=== PATIENT | male | born 1960 | race American Indian/Alaskan Native ===

== ENCOUNTER 2017-09-11 15:15 | Emergency (ER) | payer OTHER ==
[2017-09-11 15:23] VITALS: RESP 18; O2SAT 98
[2017-09-11] MEDS ORDERED: Naproxen 550 mg Tab PO STA (17:32)
[2017-09-11] MEDS ORDERED: Naproxen 550 mg Tab PO ONE (17:37)
--- NOTE | 2017-09-11 17:48 | C.PDOC ---
History Of Present Illness 56 year old male with Hx of HTN and diabetes presents to the ED c/o right sided lower back pain for over a year that is worse while seating down and also while at work, he works lifting heavy ladders. Patient states not taking his medications for HTN or diabetes for 11 months due to the fact that he lost his job and his medical insurance, he was taking metformin and lisinopril. He denies nay recent fall, trauma, abdominal pain, fever, dysuria, hematuria, or sensory changes in his legs. Time Seen by Provider: 09/11/17 16:56 Chief Complaint (Nursing): Dizziness/Lightheaded History Per: Patient History/Exam Limitations: no limitations Onset/Duration Of Symptoms: Days Current Symptoms Are (Timing): Still Present Seizure Or Post-ictal Symptoms: None Fall Associated With With Symptoms: No Recent travel outside of the [place]: No Additional History Per: Patient Past Medical History Reviewed: Historical Data, Nursing Documentation, Vital Signs Vital Signs: Last Vital Signs Temp 97.4 F L 09/11/17 15:20 Pulse 70 09/11/17 15:20 Resp 18 09/11/17 15:20 BP 133/84 09/11/17 15:20 Pulse Ox 98 09/11/17 18:04 - Medical History PMH: HTN Surgical History: No Surg Hx Family History: States: Unknown Family Hx - Social History Hx Alcohol Use: No Hx Substance Use: No Review Of Systems Except As Marked, All Systems Reviewed And Found Negative. Musculoskeletal: Positive for: Back Pain (Rigth side) Neurological: Positive for: Dizziness Physical Exam - Physical Exam Appears: Non-toxic, No Acute Distress Skin: Normal Color, Warm, Dry Head: Atraumatic, Normacephalic Oral Mucosa: Moist Neck: Normal ROM, Supple Chest: Symmetrical Cardiovascular: Rhythm Regular, No Murmur Respiratory: Normal Breath Sounds, No Accessory Muscle Use, No Rales, No Rhonchi , No Wheezing Gastrointestinal/Abdominal: Soft, No Tenderness Back: No CVA Tenderness, Paraspinal Tenderness (Lumbar around L5 level), Other ( Tenderness to sacroiliac joint) Extremity: Normal ROM, No Pedal Edema, No Deformity, No Swelling Neurological/Psych: Oriented x3, Normal Speech, Normal Cognition Gait: Steady ED Course And Treatment O2 Sat by Pulse Oximetry: 98 (On RA) Pulse Ox Interpretation: Normal Progress Note: Plan: -Naproxen 550 mg PO, Flexeril 10 mg PO given. -LS spine AP/Lat Xray, Sacrum/Coccyz X-Ray ordered Disposition Counseled Patient/Family Regarding: Studies Performed, Diagnosis, Need For Followup, Rx Given - Disposition Referrals: [facility] [Outside] Disposition: HOME/ ROUTINE Disposition Time: 19:00 Condition: STABLE Additional Instructions: FOLLOW UP IN THE MEDICAL CLINIC IN 1-2 DAYS USE MEDICATIONS DIRECTED RETURN TO ER IF SYMPTOMS WORSEN Prescriptions: Cyclobenzaprine [Cyclobenzaprine HCl] 10 mg PO BID PRN #12 tab PRN Reason: pain/muscle Lisinopril 2.5 mg PO DAILY #30 tab metFORMIN [glucOPHAGE] 500 mg PO BID #60 tab Naproxen 375 mg PO BID PRN #20 tablet PRN Reason: pain Instructions: Chronic Back Pain (ED) Forms: [email or web address] (Vietnamese) Print Language: MALAY - Clinical Impression Clinical Impression: Low back pain, Medication refill - Scribe Statement The provider has reviewed the documentation as recorded by the Scribedinson Pena All medical record entries made by the Scribe were at my direction and personally dictated by me. I have reviewed the chart and agree that the record accurately reflects my personal performance of the history, physical exam, medical decision making, and the department course for this patient. I have also personally directed, reviewed, and agree with the discharge instructions and disposition.
[2017-09-11 19:03] VITALS: BP 132/84; PULSE 57; TEMP 97.9
--- NOTE | 2017-09-12 08:56 | RAD ---
PROCEDURE: Radiographs of the Lumbar Spine. HISTORY: LOW BACK PAIN COMPARISON: No prior. FINDINGS: BONES: Normal alignment. No listhesis. No definitive fracture. . This superior endplate appearances consistent with prominent Schmorl's node indentations and mild sclerotic changes at L4-5 noted. DISC SPACES: L4-5 and posterior L5-S1 disc space narrowing. OTHER FINDINGS: AP lateral view lumbosacral junction appear shallow -spinal stenosis not excluded IMPRESSION: Prominent Schmorl's node indentation thoraco lumbar level and inferior lumbosacral level. Associated degenerative disc disease changes L4-5 and L5-S1. No suspect compression fracture greater a percent loss of height apparent
--- NOTE | 2017-09-12 08:58 | RAD ---
PROCEDURE: Radiographs of the Sacrum and Coccyx HISTORY: LOW BACK PAIN COMPARISON: None available. TECHNIQUE: Frontal and lateral views of the sacrum and coccyx FINDINGS: BONES: Sacrum and coccyx unremarkable. No fracture. A benign-appearing bone island left superior acetabulum suggested. SACROILIAC JOINTS: Unremarkable. OTHER FINDINGS: L4-5 disc space narrowing. Right lateral marginal osteophytosis present. Other age portion of the hip visualize, bilateral superolateral hip joint space narrowing is suggested. IMPRESSION: No fracture or lytic lesion of the sacrum and coccyx. . Right L4-5 prominent marginal osteophytosis. Left superior acetabular bone island. Bilateral hip osteoarthrosis
== END 2017-09-11 19:26 | disposition home or self-care (01) ==
LOC: C.ER 15:15
DX: Z76.0 Encounter for issue of repeat prescription (principal); M54.5 Low back pain; I10 Essential (primary) hypertension